=== PATIENT | female | born 1950 | race Caucasian/White ===

== ENCOUNTER → 2022-05-25 | Outpatient (CLI) | payer MEDICARE, OTHER, SELFPAY ==
--- NOTE | 2022-05-25 12:57 | CT_ITS ---
STUDY: CT SCAN LOWER EXTREMITY LEFT REASON FOR EXAM: Female, 71 years old. UNILATERAL PRIMARY OSTEOARTHRITIS, LEFT KNEE.[facility] protocol. RADIATION DOSAGE (If Supplied By Facility): CTDIvol = ( 18.77 ) mGy, DLP = ( 1468.69 ) mGycm. Individualized dose optimization techniques were used for this CT.? TECHNIQUE: Multiple axial tomographic images are obtained of the lower extremity without intravenous contrast administration. Axial and coronal reconstructions obtained as well. COMPARISON: None. FINDINGS: Imaging of the left hip joint was obtained. No significant abnormality is seen. Imaging of the knee joint was obtained. There is a marked degree of joint space narrowing with degenerative spur formation along the medial compartment of the knee joint. This evidence of subchondral cystic changes in the medial femoral condyle as well as the medial tibial plateau. Moderate amount of osteoarthritis involving the patellofemoral joint. Imaging of the ankle joint was obtained. No significant abnormality is seen. CT/Extremity Lower without Contra IMPRESSION: Marked degree of osteoarthritis involving the medial knee joint as well as the patellofemoral joint. Electronically Signed: Vern Newton MD at 14:59 EDT ,
== END | disposition home or self-care (01) ==
LOC: CT 12:50
PROVIDERS: PCP Family Medicine; Referring Provider Specialist; Visit Provider Specialist
DX: M21.162 Varus deformity, not elsewhere classified, left knee (principal)
CPT/HCPCS: 73700

== ENCOUNTER 2022-06-03 07:03 | Observation (INO) | payer MEDICARE, OTHER, SELFPAY ==
--- NOTE | 2022-05-18 12:47 | PCM.HP.BLA ---
History and Physical History and Physical? Patient Name: Roya Joseph : 1950 From:? KALE HENDRICKSON PA-C? DATE OF SURGERY:? 06/03/2022 SCHEDULED PROCEDURE:? Left total knee arthroplasty HISTORY OF PRESENT ILLNESS: Preoperative history and physical exam was performed on May 18, 2022.? This is a 71-year-old female who has had ongoing pain for over 10 years in bilateral knees.? Her left knee is worse than the right.? Pain can reach as high as a 5/10 with activities.? Her pain is been intermittent, sharp, stabbing.? Pain is increased with walking and stairs.? She has increased pain and difficulty getting up from a seated position.? She does have start up pain.? Pain is located over bilateral medial knees.? Patient states increased pain with any kneeling.? She has almost fell secondary to the knee pain.? Patient denies past history of surgery on the knee.? Patient states the pain does occasionally wake her at night.? She has tried past corticosteroid injection with only mild relief.? She has been on meloxicam with some relief.? She has tried rest, heat and weight loss of approximately 30 pounds.? She has had previous visco supplementation injections.? After failing conservative measures and discussing all treatment options with Dr. Tu Beaver, the patient does wish to proceed with a left total knee arthroplasty.? She has no underlying medical problems.? She states she does live at home with her who is currently on oxygen and has no use of his right upper arm.? She is concerned with discharge home.? She currently denies any recent chest pain, shortness of breath, fevers chills or recent infections.? We are obtaining surgical clearance from the primary care provider Reggie Nelson.? Patient denies past history of DVT or pulmonary embolism. REVIEW OF SYSTEMS: Review Of Systems: Constitutional: Denies change in appetite, fever and weight change. Cardiovasular: Denies chest pain, heart murmur and irregular heartbeat. Respiratory: Denies cough, pneumonia, shortness of breath, tuberculosis and wheezing. Gastrointestinal: Denies constipation, diarrhea, heartburn, nausea, rectal itching, bloody stools and vomiting. Musculoskeletal: Reports gait disturbance, leg swelling, trouble walking and weakness, but denies pain. Skin: Denies Raynaud's, history of shingles and tattoo. Neurological: Denies ambulatory dysfunction, dizziness, numbness/tingling and tremor. Psychiatric: Reports stress, but denies anxiety and insomnia. Hematologic/Lymphatic: Denies anemia, bleeding/bruising tendency and past transfusion. Reviewed, no changes. PAST MEDICAL HISTORY: Advance Care Plan: No Advance Directives Effective Date: 02/06/2022 Past Medical History: Medical Problems: Arthritis, Covid Vaccinated Accidents: Fracture - (1961) LT MIDDLE FINGER FX Surgical Hx: Gallbladder - (2016) [facility]--DR. AKINS Hysterectomy - (2003) [facility]--DR. LEBRON Tubal Ligation - (1976) DR. PAREDES--[place] Bladder Suspended - (2012) [facility] Anesthesia Complications: None Assistive Devices: Glasses Reviewed, no changes. SOCIAL HISTORY: Social History: Marital: .Occupation: Retired.Work Status: Retired.Hand Dominance: Left-handed. Personal Habits:? Cigarette Use: Never Smoked Cigarettes.Smokeless Tobacco: Never Used Smokeless Tobacco.E-Cigarette Use: Never used.Alcohol: Occasionally.Drug Use: Denies Use.Enjoy Exercising: Exercises 1-3 X/Week. Reviewed and updated. VITALS: Ht: 62.5 Wt: 193lb Wt k.545 BMI: 34.7 BP: 128/82 Pulse: 65 Resp: 18 T: 97.8 T: 36.6C Pain Level: 3 O2SatR: 99 ALLERGIES: Sulfa Cortisone Oxycodone? MEDICATIONS: Meloxicam 15 mg 1 by mouth every day, Topiramate 25 mg take 1 tablet by mouth once daily at bedtime for 2 weeks, then increase to 1 tab, Cranberry 250 mg 1-2 PO qday, Black Elderberry(Tucker-Flower) 575 mg 1 or 2 by mouth daily, Vitamin D3 25 mcg (1000 Ut) 1 a day PRE-OP EXAM:? General appearance:NORMAL? ? ? Other: Eyes: Conjunctivae and lids: NORMAL? Pupils: ERR Ears, Nose, Mouth, and Throat: NORMAL? Other: Inspection of lips, teeth and gums: NORMAL? ?Other: Neck: Examination of neck: no masses noted. Respiratory: Assessment of respiratory effort: NORMAL? ?Other: ?Auscultation of lungs: clear to auscultation no wheezes, rhonchi or rales. Cardiovascular:? Auscultation of heart: regular rate and rhythm, no murmurs, gallops or rubs. PHYSICAL EXAMINATION: On exam of the left knee there is no erythema or signs of infection.? She has mild effusion.? She has tenderness to palpation along the medial joint line.? Range of motion: Lacks 25 full extension to 85 flexion.? Firm endpoint with anterior/posterior drawer exam.? Stable to varus/valgus stress test. IMAGING STUDIES: Previous x-rays of the left knee reveal varus alignment with medial joint space narrowing, subchondral sclerosis, osteophyte formation consistent with severe stage IV erosive osteoarthritis IMPRESSION: 1.? Severe left knee osteoarthritis 2.? Severe right knee osteoarthritis PLAN: Dr. Tu Beaver did discuss and review with the patient all treatment options including surgical versus nonsurgical options.? Patient does wish to proceed with the above-stated procedure.? Potential risks, benefits, and complications of the procedure were discussed in detail including but not limited to , infection, nerve and blood vessel damage, persistent pain, numbness, tingling, paresthesias, blood clot, pulmonary embolism, and requirement for possible further surgery.? The patient expressed full understanding and has no further questions for the doctor.? Patient does agree to proceed with the above-stated procedure and has signed the surgery consent form. This dictation was created using voice recognition software. Phonetic and/or grammatical errors may exist. ___? I have re-examined the patient.? There are no clinical changes since date of exam. ___? See progress notes for changes. ___? Dictated on admission Date: ? ? ?Time: Signature:
[2022-05-21 10:35] LABS: Absolute Lymphocyte Count 1.21 X10^3/uL (0.83-4.51); Absolute Neutrophil Count 3.3 X10^3/uL (2.0-7.7); Basophil# 0.05 X10^3/uL; Eosinophil# 0.09 X10^3/uL; Eosinophils% 1.8 % (0-5); Hematocrit 41.2 % (37-47); Hemoglobin 12.6 g/dL (12.0-15.0); Lymphocyte # 1.21 X10^3/ul (0.83-4.51); Lymphocyte % 24.2 % (19-41); Mean Corp Hgb Conc 30.6 g/dL (32-36); Mean Corpuscular Hgb 25.7 pg (27.0-32.0); Mean Corpuscular Volume 83.9 fL (81-99); Mean Platelet Vol. 11.7 fl (6.2-12.0); Monocyte# 0.38 X10^3/uL; Monocyte% 7.6 % (0-10); NRBC Flagged by Analyzer 0 % (0-5); Neutrophil # 3.27 X10^3/uL (2.7-7.7); Neutrophil % 65.2 % (47-70); Platelet Count 170 K/mm3 (150-450); RBC Distribution Width CV 14.2 % (11.6-14.6); RBC Distribution Width SD 43.2 fl (35.1-43.9); Red Blood Count 4.91 M/mm3 (4.2-5.4)
[2022-05-21 11:03] LABS: Albumin, Serum 3.6 g/dL (3.2-5.0); Anion Gap 6 (5-15); BUN 17 mg/dL (7-18); BUN/Creat Ratio 22.8 RATIO (10-20); Calcium,Total 9.3 mg/dL (8.5-10.1); Chloride 108 mmol/L (98-107); Creatinine, Serum 0.74 mg/dL (0.55-1.02); EST Glomerular Filtration Rate 81 mL/min (>60); Est Glom Filt Rate - Afr Amer 98 mL/min (>60); Glucose 90 mg/dL (74-106); Sodium Level 142 mmol/L (136-145)
[2022-05-21 11:09] LABS: Magnesium 2.2 mg/dL (1.6-2.6)
--- NOTE | 2022-05-25 12:58 | EKG12_ITS ---
Test Reason : PREOP Blood Pressure : / mmHG Vent. Rate : 065 BPM Atrial Rate : 065 BPM P-R Int : 146 ms QRS Dur : 124 ms QT Int : 412 ms P-R-T Axes : 038 -18 024 degrees QTc Int : 428 ms Normal sinus rhythm Right bundle branch block Septal infarct , age undetermined Abnormal ECG Confirmed by LAMONT ROSSI, SYLVIA ([id number]), commissioning editor ERIC TAO ([id number]) on 05/26/2022 8:38:32 AM Referred By: Tu Beaver Confirmed By:SYLVIA MIGUEL MD
[2022-05-25 13:30] LABS: Prothrombin Time (Protime)PT. 13.3 SECONDS (11.7-14.9)
[2022-05-25 13:34] LABS: AST(SGOT) 17 U/L (15-37); Alanine Aminotransfer ALT/SGPT 19 U/L (13-56); Albumin, Serum 3.6 g/dL (3.2-5.0); Alkaline Phosphatase 88 U/L (45-117); Bilirubin, Direct 0.13 mg/dL (0.00-0.30); Globulin 4.1 g/dL (2.2-4.2); Protein, Total 7.7 g/dL (6.4-8.2)
[2022-05-25 13:37] LABS: Partial Thromboplast Time 28.1 Seconds (24.1-36.2)
[2022-06-03] VITALS (14 sets, daily range): BP systolic 118–169; BP diastolic 68–106; PULSE 69–91; RESP 16–20; TEMP 35.9–36.9; O2SAT 92–100; BMI 35.4; BMI 35.5
--- NOTE | 2022-06-03 07:08 | OP.PCM_ITS ---
Report of Operation Date of Procedure: 06/03/22 Pre-Operative Diagnosis: Left knee primary osteoarthritis Post-Operative Diagnosis: Left knee primary osteoarthritis Surgery/Procedure Performed:: Left knee minimally invasive robotic assisted total knee replacement Description of Surgical Findings:: Stable knee with good patella tracking Surgeon: Tu Beaver tactical air control party manager: Lauren Tellez Type of Anesthesia: Spinal Anesthesiologist: Rigoberto Nye Special Medications: 2 g Ancef, 1 g TXA at incision, 1 g TXA closure, 10 mg Decadron, joint cocktail (5 mg Duramorph, 30 mL of 0.5% Ropivicaine, 1000 units of epinephrine, 30 mg of Toradol) Specimen's removed: Bony cuts Estimated Blood Loss (mL): 75 Fluids Replaced: 1000 ml crystalloid Description of Procedure: Implants used: 1. Robin size 3 triathlon cruciate retaining distal femoral press-fit component 2. [place] size 3 press-fit tritanium tibial baseplate 3. Robin X3 9 mm CS polyethylene 4. Robin X3 35 mm asymmetric patella Brief history operative indications: 71-year-old female with history of left knee osteoarthritis with radiographic findings with loss of joint space, osteophyte formation and subchondral sclerosis. Failed conservative measures as mentioned in the H&P. Discussion of total knee arthroplasty as well as risk and benefits were discussed the patient including but not limited to blood loss, DVTs, PEs, neurovascular damage, general risk of anesthesia including loss of life, and stiffness or instability were discussed with patient. Patient demonstrated understanding and was able to sign informed consent. Procedure: On the date of procedure patient's left lower extremity was marked in the preoperative area. The patient was then taken back to the operating room where the patient was placed on the table in the supine position. All bony prominences were identified a well-padded. Anesthesia assumed control of the C-spine and airway and remained controlled throughout the remainder of the procedure. A tourniquet was placed on the left upper thigh and the leg was prepped in a sterile fashion. The surgeon then scrubbed at this time .Upon reentering the room left lower extremity was draped in a standard orthopedic fashion. A timeout was then called and everyone agreed upon the side, the site, the procedure to be performed, patient's identity and antibiotics given. Esmarch bandage was used to exsanguinate the extremity and the tourniquet was placed up to 250 mmHg with the knee in flexion. A midline skin incision was made and sharp dissection was taken down through skin subcutaneous tissue and fat. The standard medial parapatellar incision was made and the patella was subluxed laterally. An Appropriate deep MCL release was done and the fat pad was resected. Our attention was then directed to the patella. The patella was everted and a flat resection was made. The knee was then flexed up in 2 femoral pins were placed inside the incision and 2 tibial pins were placed outside the incision in the medial tibia bicortically. Once this was completed the 2 checkpoints in the femur and tibia were placed. Knee was then flexed up and the bony landmarks were registered. Once this was completed knee was taken through range of motion and manually stressed allowing us to a plan for an appropriate tibial cut. The robotic arm was brought into the field sterilely and checkpoint and saw were registered. Based on the patient's deformity the tibial cut was made in 3 degrees varus. At this time the tensioner was then placed in the joint and ligament tension was checked at 90 degrees and full extension. Based on the patient's ligamentous tension appropriate adjustments were made to the operative plan and ligament releases were done. Once we were happy with our operative plan with balanced flexion and extension gaps our attention was directed to the femur. The robot was brought into the field sterilely and registered. Posterior condylar cuts, anterior chamfer cuts and anterior cuts were appropriately made for a size 3 femur. When these were completed the saws were switched out in the distal femoral and posterior chamfer cuts were made. Protecting the soft tissue throughout this time. A size 3 tibial base plate was selected. the knee was flexed to 90 degrees and the soft tissues and posterior osteophytes were removed from the joint. 40 cc of the periarticular injection was injected into the posterior medial corner of the joint. The appropriate trials were then placed on the femur and tibia. A trial polyethylene was trialed to ensure proper balancing and stability of the knee. The appropriate tibial internal rotation was then marked with a bovie. Our attention was then directed to the patella. The lug holes were drilled and the patella trial was placed. Patellar tracking was checked and deemed appropriate. Once we were happy lug holes were drilled for the femur and trial components were removed. the tibia was subluxed and pinned into place and the keel was punched and drilled appropriately. Final components were verified and opened, and cement was mixed in a vacuum. [employer] Simplex cement was used. The wound was copiously irrigated with normal saline. When the cement was ready the components were impacted into place starting with the tibia, femur and finally the patella. The trial poly component was placed and the knee was placed in full extension. All excess cement was removed in the process. Once the cement had cured the tracking, alignment and balance were verified and a size 9 mm CS polyethylene component was placed. Once the final components were placed a 3-minute dilute Betadine lavage was performed followed by an Irrisept lavage was performed and the wound was copiously irrigated with normal saline solution and the periarticular injection was given. The wound was closed in a layer esteves fashion using #1 vicryl interrupted sutures for the arthrotomy, 2-0 interrupted Vicryl suture for the subcuticular layer and jimmie for final skin closure. A sterile compressive dressing was then placed. The patient was then awakened from anesthesia, transferred to the [place] and transferred to the PACU for recovery. Post op plan DVT ppx: ASA 81mg BID, thigh high compression stockings Follow up: in office in 2 weeks for wound check PT: to start POD #0 at hospital, outpatient PT should be arranged. My physician assistant front end manager was a vital part of this case. He was important in appropriate retraction during the case, and protection of soft tissues during bony cuts. His intimate knowledge of the case and my steps aided in safe and expedient completion of the procedure as well as appropriate position of the leg during the case. He was also vital in assisting with closure under my direct supervision. Due to the complexity of this case robotic arm was used to assist in the surgery to improve accuracy and clinical outcomes. Complications No intraoperative complications Admit VTE Documentation VTE Present on Admission: No VTE Mechan Device Prophylaxis: SCD's and Thigh High CLEMENCIA Hose VTE Pharm Prophylaxis ordered?: Yes
[2022-06-03] MEDS: Lactated Ringers 1,000 ML 15 ML IV (07:27)
[2022-06-03] MEDS: Magnesium 1 GM over 15 mins IV (07:27)
[2022-06-03] MEDS: Acetaminophen 500 MG Tablet 1000 MG PO ×2 (07:48→21:04)
[2022-06-03] MEDS: Gabapentin 600 MG Tablet PO (07:49)
[2022-06-03 08:25] LABS: Bedside Glucose 76 mg/dL (74-106)
[2022-06-03] MEDS: Cefazolin 2 GM in 0.9% Normal Saline 100 ML IV (09:42)
--- NOTE | 2022-06-03 09:45 | KNEE_PTH ---
PATIENT: MIKHAIL BAILEY LOC: MS3 U#:[id number] AGE/SX: 71/F ROOM: [facility] [place] RE06/03/[address]: Dr. Tu Beaver MD : 1950 BED: 1 DIS: 06/04/2022 SPEC #: [id number] RECD: 06/03/22 14:00 STATUS: CHRIS PINEDA #: [id number] HOOD: 06/03/22 09:[address]: Tu Beaver DEPT: SURGICAL PATHOLOGY RECD BY: Jackie Sood ENTERED: 06/04/22 10:51 SP TYPE: TOTAL KNEE OTHR DR: DO Dr. Marcelo Gilmore MD Dr. Paige Pierce, MD Tissues: Knee, NOS Procedures: Decalcification bone/plaque Surgery Specimen Level IV HEADER OPERATION: ERAS, total knee replacement robotic arm assist PRE-OP DIAGNOSIS: Severe left knee osteoarthritis TISSUE SUBMITTED: Bone and tissue left knee MICROSCOPIC DIAGNOSIS Bone and tissue of left knee, total knee resection: Severe degenerative joint disease. Mild synovial hyperplasia. AM:dav 06/10/2022 MICROSCOPIC DESCRIPTION Slides are reviewed. GROSS DESCRIPTION Received is one container designated bone and soft tissue left knee. The specimen consists of multiple fragments of johnson-yellow bone measuring in aggregate 15.0 x 10.0 x 2.0 cm. Also in the specimen container are multiple fragments of yellow-white soft tissue measuring in aggregate 4.0 x 3.0 x 1.0 cm. A number of bony fragments contain articular surfaces consistent with tibial plateau and femoral condyle and displaying prominent osteophyte formation, eburnation and bone erosion. Instrument Maker sections are submitted in two cassettes as follows: 1 - soft tissue, 2 - bone after decalcification. / AM:dav 06/04/2022 TC:5 CPT: 18218, 41079
[2022-06-03] MEDS: TXA 1000mg in NS100 100ml (IVPB at Incision) 660 MG IV (09:52)
[2022-06-03] MEDS: dexAMETHasone 10 MG/ML Vial IV (09:52)
[2022-06-03] MEDS: JPS (Morphine 10mg/ml) OPERA.SITE (10:30)
[2022-06-03] MEDS: TXA 1000mg in NS100 100ml (IVPB at Closure) 660 MG IV (10:42)
--- NOTE | 2022-06-03 11:30 | RAD_ITS ---
STUDY: X-RAY - LEFT KNEE REASON FOR EXAM: Female, 71 years old. Postoperative evaluation. TECHNIQUE: 2 view(s) of the knee. COMPARISON: None. FINDINGS: 3 component total knee arthroplasty in anatomic position. Expected post-operative findings and no complications. No other significant abnormality is identified. RAD/Knee 1 or 2 Views IMPRESSION: Total knee arthroplasty in anatomic alignment without complications. Electronically Signed: Andrés Jung, at 11:41 EDT ,
[2022-06-03] MEDS: Lactated Ringers 1,000 ML 999 ML IV (11:45)
[2022-06-03] MEDS: Aspirin 81 MG TAB.CHEW PO (16:39)
[2022-06-03] MEDS: Ensure Surgery 237 ML LIQUID PO (16:44)
[2022-06-03] MEDS: Cefazolin 1 GM/50 ML BAG IV (17:00)
--- NOTE | 2022-06-03 17:10 | CON.PCM.HO_ITS ---
Assessment & Plan Assessment/Plan (1) Osteoarthritis of knees, bilateral: PLAN: Plan #Left knee OA -status post minimally invasive robotic assisted total knee replacement on 05/28 -Feels her pain is reasonable at this time #History of bladder sling -We will add bladder scan as needed -Abdomen benign without tenderness on palpation or fullness appreciated #DVT ppx: We will defer DVT prophylaxis to Mil Stanton MD HPI Consult Data Date of Consult: 06/03/22 HPI Narrative Reason for Consultation: Medical management HPI Narrative: MIKHAIL BAILEY, is a 71 F with a history of bilateral knee osteoarthritis and bladder sling who presented to [facility]22 for knee pain left worse than right this that she could undergo left knee minimally invasive robotic assisted total knee replacement. She was seen after surgery and reports no pain while she was just sitting there and overall feeling well. Did have a little bit of lower abdominal pain which she attributed to possibly retaining urine and she went to pee and had small amount out. And that did improve. No other complaints [facility] Medical History (Updated 06/03/22 @ 17:[address] Halley Stanton MD) Arthritis Easy bruising History of diverticulitis Leg cramps Meningioma Non-smoker PONV (postoperative nausea and vomiting) Post-menopausal Restless legs Wears glasses Home Medications cholecalciferol (vitamin D3) 25 mcg (1,000 unit) capsule (Vitamin D3) 25 mcg PO DAILY supplement 05/22/22 [History Last Taken 06/02/22] cranberry extract 50 mg chewable tablet 50 mg PO DAILY supplement 05/22/22 [History Last Taken 05/29/22] meloxicam 15 mg tablet 15 mg PO DAILY inflamation 05/22/22 [History Last Taken 05/29/22] topiramate 25 mg tablet 50 mg PO QHS dieting 05/22/22 [History Last Taken 05/29/22] vitamin C 90 mg-zinc gluconate 15 mg-herbal complex no. 325 lozenges (Elderberry Zinc Vit C) 2 hannah PO QHS supplement 05/22/22 [History Last Taken 05/29/22] Allergy/AdvReac Type Severity Reaction Status Date / Time Sulfa (Sulfonamide Allergy Hives Verified 06/03/22 07:32 Antibiotics) oxycodone AdvReac Other Verified 03/29/23 07:32 Surgical History (Updated 05/22/22 @ 10:31 by Nydia Keating) History of bladder suspension procedure History of cholecystectomy History of colonoscopy History of eyelid surgery History of hysterectomy History of surgical removal of ganglion cyst History of wisdom tooth extraction Social History Smoking Status: Never smoker ROS ROS Narrative General: Denies fever/chills HENT: Denies headache, denies stuffy nose, denies sore throat EYES: Denies changes in vision Resp: Denies cough, denies shortness of breath Cardiac: Denies chest pain GI: Slight lower abdominal fullness improved with small amount urination, denies changes in bowel, denies nausea/vomiting : Denies changes in urination Extremity: Denies swelling, minimal pain MSK: Denies weakness Neuro: Denies any numbness/tingling Heme: Denies any bleeding or bruising Skin: Denies rashes Psychiatric: No complaints voiced Physical Exam Narrative General: Alert, oriented, no apparent distress HEENT: Atraumatic, normocephalic Eyes: Anicteric, normal conjunctiva, extraocular movements grossly intact Neck: Supple Respiratory: Clear to auscultation bilaterally, normal respiratory effort Cardiovascular: Regular rate and rhythm GI: Soft, nontender, nondistended Extremities: No edema Musculoskeletal: Moving all extremities Neuro: No overt focal neurological deficits Skin: No rashes appreciated Psych: Cooperative Lab / Micro Data Result Diagrams: 05/21/22 09:27 05/21/22 09:27 Labs: Laboratory Results - last 24 hr 06/03/22 07:31: POC Glucose 76 Radiology Impression Knee X-Ray 06/03/22 11:30 IMPRESSION: Total knee arthroplasty in anatomic alignment without complications. Electronically Signed: Andrés Jung, at 11:41 EDT , Charges/Coding Visit Charges Office Visits / Consults: 23350 OP Consult L2
[2022-06-03] MEDS: Senna/Docusate Sodium 1 Tablet 2 TABLET PO (21:00)
[2022-06-04 00:12] VITALS: BP 147/72; PULSE 60; RESP 16; TEMP 36.4; O2SAT 93
[2022-06-04 00:14] VITALS: BMI 35.5
[2022-06-04] MEDS: 0.9% Saline Lock 10 ML Syringe IV (02:56)
[2022-06-04] MEDS: Cefazolin 1 GM/50 ML BAG IV (02:56)
[2022-06-04 04:06] VITALS: BMI 35.5
[2022-06-04 04:11] VITALS: BP 154/83; PULSE 62; RESP 16; TEMP 36.3; O2SAT 95
[2022-06-04] MEDS: Acetaminophen 500 MG Tablet 1000 MG PO (06:00)
[2022-06-04 06:32] LABS: Hematocrit 37.1 % (37-47); Hemoglobin 11.5 g/dL (12.0-15.0); Mean Corpuscular Volume 83.9 fL (81-99); Platelet Count 152 K/mm3 (150-450); RBC Distribution Width CV 13.9 % (11.6-14.6); RBC Distribution Width SD 42.5 fl (35.1-43.9); Red Blood Count 4.42 M/mm3 (4.2-5.4); White Blood Count 13.6 K/mm3 (4.4-11.0)
[2022-06-04 06:59] LABS: Anion Gap 4 (5-15); BUN 11 mg/dL (7-18); BUN/Creat Ratio 15.2 RATIO (10-20); Calcium,Total 8.9 mg/dL (8.5-10.1); Chloride 108 mmol/L (98-107); Creatinine, Serum 0.72 mg/dL (0.55-1.02); EST Glomerular Filtration Rate 84 mL/min (>60); Est Glom Filt Rate - Afr Amer 101 mL/min (>60); Estimated Creatinine Clearance 39.63 ml/min; Glucose 125 mg/dL (74-106); Potassium 4.1 mmol/L (3.5-5.1); Sodium Level 140 mmol/L (136-145)
[2022-06-04 08:16] VITALS: BP 152/80; PULSE 81; RESP 18; TEMP 37.2; O2SAT 97; BMI 35.5
--- NOTE | 2022-06-04 08:42 | PN.HOSP_ITS ---
Reason for Visit Reason for Visit: Diagnoses Bilateral primary osteoarthritis of knee (06/03/22) Encounter for other preprocedural examination (06/03/22) Subjective Subjective Doing well today, no complaints. Pain well controlled with current medication Objective Data Objective Data Vital Signs: Vital Signs Temp Pulse Resp BP Pulse Ox O2 Del Method O2 Flow Rate 97.4 F L 62 16 154/83 H 95 Room Air 4 06/04/22 04:11 06/04/22 04:11 06/04/22 04:11 06/04/22 04:11 06/04/22 04:11 06/04/22 04:11 06/03/22 13:12 Oxygen Flow Rate (L/min) 4 Oxygen Delivery Method Room Air Weight: 88 kg Body Mass Index (BMI) 35.4 Intake & Output: Intake and Output for Last 24 Hours 06/02/22 06/03/22 06/04/22 23:59 23:59 23:59 Intake Total 3482 / 3982 750 / 750 Balance 3482 / 3982 750 / 750 Lab / Micro Data Result Diagrams: 06/04/22 06:24 06/04/22 06:24 Labs: Laboratory Results - last 24 hr 06/04/22 06:24: WBC 13.6 H, RBC 4.42, Hgb 11.5 L, Hct 37.1, MCV 83.9, MCH 26.0 L , MCHC 31.0 L, RDW Std Deviation 42.5, RDW Coeff of Pascual 13.9, Plt Count 152, MPV 11.0 06/04/22 06:24: Sodium 140, Potassium 4.1, Chloride 108 H, Carbon Dioxide 28.0, Anion Gap 4 L, BUN 11, Creatinine 0.72, Estim Creat Clear Calc 39.63, Est GFR (MDRD) Af Amer 101, Est GFR (MDRD) Non-Af 84, BUN/Creatinine Ratio 15.2, Glucose 125 H, Calcium 8.9 Micro: Microbiology 05/21/22 09:27 Swab (Method) Nasal Screen MRSA/MSSA - Final Radiography Diagnostic Testing: Radiology Impression Knee X-Ray 06/03/22 11:30 IMPRESSION: Total knee arthroplasty in anatomic alignment without complications. Electronically Signed: Andrés Jung, at 11:41 EDT , Physical Exam Narrative General: Alert, oriented, no apparent distress HEENT: Atraumatic, normocephalic Eyes: extraocular movements grossly intact Neck: Supple Respiratory: normal respiratory effort Cardiovascular: no edema appreciated GI: nondistended Extremities: Moving all extremities Neuro: No overt focal neurological deficits Psych: Cooperative Assessment & Plan Assessment/Plan (1) Osteoarthritis of knees, bilateral: PLAN: Plan #Left knee OA -status post minimally invasive robotic assisted total knee replacement on 05/28 -Feels her pain is reasonable at this time -Management per primary, on aspirin 81 mg twice daily and pain control PT/OT #History of bladder sling -We will add bladder scan as needed -Abdomen benign without tenderness on palpation or fullness appreciated -06/04: Reports she is urinating well and has no complaints #DVT ppx: We will defer DVT prophylaxis to Ortho DISPO: PT/OT. Further dispo/management per primary. Hospitalist will sign off, please call or reconsult if needed. Halley Stanton MD Charges/Coding Visit Charges Inpatient E&M: 74010 Subs Hosp L1
[2022-06-04] MEDS: Famotidine 20 MG Tablet PO (09:07)
[2022-06-04] MEDS: Aspirin 81 MG TAB.CHEW PO (09:07)
[2022-06-04] MEDS: Senna/Docusate Sodium 1 Tablet 2 TABLET PO (09:07)
[2022-06-04] MEDS: Ensure Surgery 237 ML LIQUID PO ×2 (09:11→12:04)
[2022-06-04] MEDS: HYDROcodone Bitartrate/Apap 5/325 Tablet PO (09:12)
[2022-06-04 09:13] VITALS: O2SAT 94
--- NOTE | 2022-06-04 09:49 | PCM.PN.ORT ---
Subjective Subjective The patient was sitting in bed upon examination. Patient denies any chest pain, shortness of breath, dizziness, lightheadedness, nausea or vomiting, or calf pain. Pain is controlled on medications. No adverse overnight events. Patient overall is doing well this morning. She has been up walking to the bathroom. Objective Data Objective Data Vital Signs: Vital Signs Temp Pulse Resp BP Pulse Ox O2 Del Method O2 Flow Rate 97.4 F L 62 16 154/83 H 95 Room Air 4 06/04/22 04:11 06/04/22 04:11 06/04/22 04:11 06/04/22 04:11 06/04/22 04:11 06/04/22 07:23 06/03/22 13:12 Oxygen Flow Rate (L/min) 4 Oxygen Delivery Method Room Air Weight: 88 kg Body Mass Index (BMI) 35.4 Intake & Output: Intake and Output for Last 24 Hours 06/02/22 06/03/22 06/04/22 23:59 23:59 23:59 Intake Total 3482 / 3982 750 / 750 Balance 3482 / 3982 750 / 750 Lab / Micro Data Result Diagrams: 06/04/22 06:24 06/04/22 06:24 Labs: Laboratory Results - last 24 hr 06/04/22 06:24: WBC 13.6 H, RBC 4.42, Hgb 11.5 L, Hct 37.1, MCV 83.9, MCH 26.0 L, MCHC 31.0 L, RDW Std Deviation 42.5, RDW Coeff of Pascual 13.9, Plt Count 152, MPV 11.0 06/04/22 06:24: Sodium 140, Potassium 4.1, Chloride 108 H, Carbon Dioxide 28.0, Anion Gap 4 L, BUN 11, Creatinine 0.72, Estim Creat Clear Calc 39.63, Est GFR (MDRD) Af Amer 101, Est GFR (MDRD) Non-Af 84, BUN/Creatinine Ratio 15.2, Glucose 125 H, Calcium 8.9 Micro: Microbiology 05/21/22 09:27 Swab (Method) Nasal Screen MRSA/MSSA - Final Radiography Diagnostic Testing: Radiology Impression Knee X-Ray 06/03/22 11:30 IMPRESSION: Total knee arthroplasty in anatomic alignment without complications. Electronically Signed: Andrés Jung, at 11:41 EDT , Physical Exam Narrative Vital signs stable and afebrile. SCDs and CLEMENCIA hose are in place bilaterally Patient is able to plantarflex and dorsiflex actively. Sensation is intact to light touch to saphenous, sural, superficial and deep peroneal, and tibial distribution. Distal pin site dressing with moderate saturation but stable. Mepilex dressing is clean dry and intact. Negative Homans bilaterally, negative signs and symptoms of DVT. Const alert, oriented x3 and no apparent distress Assessment & Plan Assessment/Plan (1) Status post total left knee replacement: PLAN: 1. S/P left total knee arthroplasty POD #1 2. Continue Pain Medications: Hydrocodone/acetaminophen and meloxicam. Do not take any other nonsteroidal anti-inflammatories while using meloxicam/Mobic. 3. DVT Prophylaxis: Take 81 mg aspirin twice daily for 4 weeks postoperatively for DVT prophylaxis. 4. PT/OT: Weightbearing as tolerated with walker. Would like assessment from physical therapy about discharge planning 5. H & H: 11.5/37.1, asymptomatic. Postoperative anemia secondary to acute blood loss from surgery without any intra operative complications. 6. Reactive leukocytosis: Currently 13.6, afebrile. Patient did receive Decadron intraoperatively 7. Continue postoperative medical management per medicine 7. Encouraged Incentive Spirometry 8. Disposition: Plan will be for probable discharge home today with home health physical therapy for 2 weeks. Physical therapy will be assessing patient and case management on board for appropriate discharge planning. She would like her prescriptions E scribed to [facility]. She will follow-up per postop instructions. If patient does get approval for home health and discharged today she is to contact her office with any concerns or questions. I have reviewed the [place] Automated Rx Reporting System (OARRS) report for this patient for refill pattern and other prescriber involvement as part of the appropriate surveillance for the provision of acute and chronic controlled medications. The report was requested and reviewed on the date of this entry and was considered in the prescribing process. This dictation was created using voice recognition software. Phonetic and/or grammatical errors may exist.
--- NOTE | 2022-06-04 09:53 | DCINST_ITS ---
Discharge Instructions Diet Discharge Diet: No restrictions Activity Discharge Activity: May Not Drive (while taking narcotic pain medications.) May shower in (days): 1 (Please turn dressing away from water. Okay to get wet as long as dressing is intact to skin.) Ice area for (Minutes): 20 (Every 1-2 hours while awake. Please place barrier between the skin and ice pack.) Weight Bearing Status: Weight bearing as tolerated Keep extremity elevated above heart level: Operative Extremity Dressing / Incision Call your doctor if your incision/area has: Continuous Slow Oozing, Sudden Increased Bleeding, Increased Pain/ Swelling, Increased Redness and Foul Smelling Discharge Call your doctor if you observe: Fever of 101 or Higher, Coldness, Increased Pain, Numbness or Tingling, Change in Color, Shortness of breath, Chest pain, Calf discomfort and Uncontrolled pain Remove Dressing in: 4 days (Okay to remove dressing on June 08, 2022) Additional Dressing/Incision Instructions:: Follow [facility] Post-op Instructions. Once postoperative dressing has been removed only use gentle soap and water over the incision. Do not use any ointments, Neosporin, salves, alcohol pads over the incision for 6 weeks postoperatively. Do not submerge underwater for 6 weeks postoperatively. Continue with CLEMENCIA hose/elastic stockings for 2 weeks postoperatively. May remove at nighttime but needs to be placed back on the leg during the day. Do NOT use alcohol with narcotic pain medication. Do NOT make important decisions while taking narcotic medication. If you have problems with taking your medication (rash, itching, nausea, etc.) call the offi ce at once. Follow Up Care Test Results: Test results from this visit will be discussed in further detail at your follow- up appointment, if applicable. Discharge Plan Admission Admit Date/Time: 06/03/22 07:03 Attending Provider: Tu Beaver Primary Care Provider: Reggie Nelson Consulting Providers: Marcelo Perez ; Halley Stanton Discharge Orders/Prescriptions Prescriptions: New aspirin [Enteric Coated Aspirin] 81 mg tablet,delayed release (DR/EC) 81 mg PO BID 30 Days Qty: 60 0RF Rx Instructions: Take 81 mg aspirin twice daily for 4 weeks postoperatively for DVT prophylaxis. famotidine 20 mg Tablet 20 mg PO DAILY 30 Days Qty: 30 0RF hydrocodone-acetaminophen 5-325 mg Tablet 1 tab PO Q6H PRN PRN (Reason: Pain Score 4-5) 7 Days Qty: 56 0RF Rx Instructions: Take 1-2 tablets every 6 hours as needed for pain sennosides-docusate sodium [Senna with Docusate Sodium] 8.6-50 mg tablet 2 tab-cap PO BID 3 Days Qty: 12 0RF Rx Instructions: Take until first bowel movement, then as needed Continued meloxicam 15 mg tablet 15 mg PO DAILY Label Comments: TAKE 1 TABLET BY MOUTH EVERY DAY NEEDED FOR PAIN topiramate 25 mg tablet 50 mg PO QHS cholecalciferol (vitamin D3) [Vitamin D3] 25 mcg (1,000 unit) Capsule 25 mcg PO DAILY cranberry extract 50 mg Tablet,Chewable 50 mg PO DAILY Elderberry Zinc Vit C 90-15 mg Lozenge 2 hannah PO QHS Referrals / Follow Up: Reggie Nelson DO [Primary Care Provider] - Disposition Disposition (needs filled in before D/C Order can be placed): Home Health Service
--- NOTE | 2022-06-04 10:52 | CASEMGMT ---
RN?CM?[employer] TECHNICIAN?CM?to room to meet with patient for initial transition planning/care coordination?assessment.?RN?CM?introduced self and role at [facility].? Pt voices understanding and consents to?assessment?at this time.? Pt sitting up in chair in room in no distress at this time.? @ bedside. Pt is A/O at this time and answers all questions appropriately.?? Care providers, pharmacy, and demographics verified/updated at this time. PCP: Dr Nelson Specialists: Dr Beaver-kim Preferred Pharmacy: [facility] Retail Insurance:MCR, AARP Prescription Benefit:?Yes Living Will/HPOA:? Pt does not currently have LW/HCPOA.? Pt made aware that she can contact [facility] as an out-pt and make appt in the future if she decides she would like to talk with someone about this or would like to utilize [facility] social work for advanced directive completion.? LNOK: , Ed. Dtr, Elise Living Arrangements: Lives w/ in one-level condo w/basement. Has chair lift to basement. No steps to enter home. Indep @ baseline. unable to physically assist pt, but dtr lives only 1 mile away and can assist if needed. Transportation:?Pt states drives self and states no transportation concerns at this time.? also drives. DME: States has the following DME:?Has cane, walker, chair lift, and grab bar ?Pt states no need for further DME at this time.? HHC/SNF: No hx of either. Pt would like [facility] for therapy. She states [facility] is [facility] preference and denies wanting list of other C options at this time. Call to Madeleine @ [facility] and referral made. She states they are able to accept pt w/SOC slated for tomorrow. Pt and made aware. Pt wishes to return home and states has no concerns with going home at time of discharge.? CM?to follow for any further discharge planning/needs.? Pt voices no further concerns/needs at this time.? Advised pt to ask for?CM?if any further questions/concerns/needs arise.? Voices understanding. LAKHANI form explained re: Observation status for treatment of left total knee replacement.? Explained hospitalization will be paid per?her insurance policy for Outpatient billing?and condition will continue to be evaluated for Inpt necessity. Also let pt know that [facility] sends paper in the billing packet with their phone number if questions arise. Pt verbalizes understanding and does not have further questions. ?Form signed, copy made and placed in chart, and original given to pt. PLAN:??[facility]. Renu BSN?RN?CM
[2022-06-04 13:17] VITALS: BP 144/74; PULSE 89; RESP 18; TEMP 36.8; O2SAT 89
== END 2022-06-04 12:55 | disposition home health service (06) ==
LOC: SDC 14:56 → MS3 14:56
PROVIDERS: Anesthesiology; Physician Assistant Surgical; Admitting Provider Specialist; PCP Family Medicine; Referring Provider Specialist; Visit Provider Specialist
PROC: 0SRD0JZ Replacement of Left Knee Joint with Synthetic Substitute, Open Approach (ICD-10-PCS; CPT 27447; principal; 2022-06-03 09:15)
DX: M17.12 Unilateral primary osteoarthritis, left knee (principal); Z79.899 Other long term (current) drug therapy; Z86.2 Personal history of diseases of the blood and blood-forming organs and certain disorders involving the immune mechanism; G25.81 Restless legs syndrome; I45.10 Unspecified right bundle-branch block; R94.31 Abnormal electrocardiogram [ECG] [EKG]
CPT/HCPCS: 27447; S2900; 01402; 64447; 36415; 73560; 80048; 80076; 82040; 82962; 83735; 85025; 85027; 85610; 85730; 87081; 88305; 88311; 93005; 94668; 96365; 96366; 97110; 97116; 97162; 97166; 97530; 99221; 99252; C1776; J7120; A4216; G0378; G0463; J2405; J3475